=== PATIENT | male | born 1955 | race Caucasian/White ===

== ENCOUNTER 2017-01-11 18:59 | Inpatient (IN) | payer BC ==
[2017-01-11] MEDS ORDERED: Naloxone 0.4 MG/ML SDV IV PRN (19:52)
[2017-01-11] MEDS ORDERED: HYDROmorphone/Normal Saline 15 MG/30 ML PCA IV PRN (19:52)
[2017-01-11] MEDS ORDERED: Sodium Chloride 0.9% 10 ML Syringe FLUSH PRN (19:54)
[2017-01-11] MEDS: Dextrose 5%-Lactated Ringers 1,000 ML IV SCH (20:00)
[2017-01-11] MEDS ORDERED: MVI, Adult with Vitamin K 10 ML, Magnesium Sulfate 2 GM, Folic Acid 1 MG, Thiamine 100 ... IV SCH ×5 (20:00)
[2017-01-11] MEDS ORDERED: Ondansetron 4 MG/2 ML SDV IV PRN (20:07)
[2017-01-11] MEDS: Albuterol 8 GM Inhaler INH SCH (22:37)
[2017-01-11] MEDS: Brimonidine 0.2% Ophth Soln 5 ML Bottle EYEBOTH SCH (23:10)
[2017-01-11] MEDS: Timolol Maleate 0.5% Ophth Soln 5 ML Bottle EYEBOTH SCH (23:10)
[2017-01-11] MEDS: Gabapentin 300 MG Cap PO SCH (23:18)
[2017-01-11] MEDS: Pantoprazole 40 MG Vial IV SCH (23:18)
[2017-01-12] MEDS: Dextrose 5%-Lactated Ringers 1,000 ML IV SCH ×3 (02:19→21:49)
[2017-01-12] MEDS: Albuterol 8 GM Inhaler INH SCH ×2 (07:42→11:10)
[2017-01-12] MEDS ORDERED: MVI, Adult with Vitamin K 10 ML, Magnesium Sulfate 2 GM, Folic Acid 1 MG, Thiamine 100 ... IV SCH ×5 (08:00)
[2017-01-12] MEDS: Potassium Chloride 10 MEQ Cap.ER PO SCH ×2 (08:31→16:41)
[2017-01-12] MEDS: Allopurinol 300 MG Tab PO SCH (08:40)
[2017-01-12] MEDS: Furosemide 40 MG Tab PO SCH (08:41)
[2017-01-12] MEDS: Gabapentin 300 MG Cap PO SCH ×2 (08:42→21:42)
[2017-01-12] MEDS: Aspirin 81 MG Tab.EC PO SCH (08:42)
[2017-01-12] MEDS: Timolol Maleate 0.5% Ophth Soln 5 ML Bottle EYEBOTH SCH ×2 (08:48→21:42)
--- NOTE | 2017-01-12 08:50 | PN ---
DATE OF SERVICE: 01/12/2017 SUBJECTIVE: Vincenzo reports he ate some Jell-O after he was admitted last evening and some beef broth and he said it doubled him over in pain. He did use 2 bumps of a Dilaudid DONATION WORKER and he has not had to use that since. Vital signs have been stable. His pain otherwise has been controlled. REVIEW OF SYSTEMS: Remainder of review of systems negative for any pertinent positives and negatives. OBJECTIVE: GENERAL: Vincenzo is a 61-year-old male. VITAL SIGNS: Height is 5 feet 10 inches. Weight is 209 pounds. TPR is 96.5, 47, 16, blood pressure 159/78. HEENT: Negative. NECK: Supple. HEART: Regular rate and rhythm. LUNGS: Clear. ABDOMEN: Less tender than examination yesterday, but remains tender in all 4 quadrants with increased tenderness in the mid abdomen. EXTREMITIES: Without peripheral edema. ASSESSMENT: Partial small bowel obstruction/volvulus, SP Yakelin-en-Y gastric bypass surgery, unspecified surgical malabsorption, B12 deficiency. PLAN: 1. Schedule and have consent signed for exploratory laparoscopy, possible laparotomy for small-bowel volvulus, possible lysis of adhesion, and possible small bowel obstruction. General anesthesia. Kt Real MD date of surgery, 01/13/2017. 2. N.p.o. after midnight. Continue with sips of clear liquids and sips with medications. 3. To start incentive spirometer, use as directed. 4. We will evaluate p.r.n. or in a.m. Mandy Lewis PA-C /[id number]
[2017-01-12] MEDS: Brimonidine 0.2% Ophth Soln 5 ML Bottle EYEBOTH SCH ×2 (08:54→21:41)
[2017-01-12] MEDS: Lisinopril 5 MG Tab PO SCH (08:55)
[2017-01-12] MEDS: Pantoprazole 40 MG Vial IV SCH ×2 (08:55→21:42)
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
[2017-01-12] MEDS ORDERED: MVI, Adult with Vitamin K 10 ML, Magnesium Sulfate 2 GM, Folic Acid 1 MG, Thiamine 100 ... IV ONE ×5 (09:30)
[2017-01-12] MEDS ORDERED: Albuterol 8 GM Inhaler INH PRN (11:45)
--- NOTE | 2017-01-12 12:09 | CR ---
Chest 2V INDICATION: preop/ dehydration/volvulus FINDINGS: Comparison 04/01/2015. Heart size within normal limits. Pulmonary vascularity normal. Lungs are clear. Hypertrophic changes thoracic spine. Chest otherwise negative.
[2017-01-12] MEDS: Furosemide 80 MG Tab PO SCH (16:41)
[2017-01-13] MEDS: Dextrose 5%-Lactated Ringers 1,000 ML IV SCH ×2 (04:32→21:08)
[2017-01-13] MEDS ORDERED: Bupivacaine 0.5%/EPINEPHrine 1:200,000 50 ML MDV ONE (07:16)
[2017-01-13] MEDS ORDERED: Meropenem 500 MG SDV ONE (07:16)
--- NOTE | 2017-01-13 09:11 | PN ---
DATE OF SERVICE: 01/13/2017 SUBJECTIVE: Vincenzo is n.p.o. He will be having a diagnostic laparoscopy, possible laparotomy for small bowel volvulus today. Vital signs have been stable. REVIEW OF SYSTEMS: Negative for any other pertinent positives and negatives. He did have a cardiac consultation with Nel, yesterday. OBJECTIVE: GENERAL: Vincenzo Thrasher is a 61-year-old male. He is alert and orientated. VITAL SIGNS: TPR 97.8, 52, 16. Blood pressure 103/57. HEENT: Negative. NECK: Supple. HEART: Regular rate and rhythm. LUNGS: Clear. ABDOMEN: Mild tenderness in all 4 quadrants. EXTREMITIES: Without peripheral edema. ASSESSMENT: 1. Small bowel volvulus, partial small bowel obstruction, status post Yakelin-en-Y gastric bypass surgery, unspecified surgical malabsorption, B12 deficiency. 2. Abnormal EKG, sinus bradycardia and mild nonspecific intraventricular conduction delay. 3. Chronic renal disease, stage 3. 4. Coronary artery disease. PLAN: After preoperative evaluation, discussion of possible risks and possible complications, Vincenzo Thrasher wished to proceed with surgical procedure. Orders to be written postoperatively. Mandy Lewis PA-C /[id number]
[2017-01-13] MEDS: cefOXitin 2 GM in Sodium Chloride 0.9% 50 ML IV ONE ×2 (10:00→14:52)
[2017-01-13] MEDS ORDERED: fentaNYL 250 MCG/5 ML SDV ONE ×2 (10:26→11:08)
[2017-01-13] MEDS ORDERED: Neostigmine Methylsulfate 1 MG/ML 5 ML Syringe ONE (10:28)
[2017-01-13] MEDS ORDERED: Succinylcholine 200 MG/10 ML MDV ONE (10:28)
[2017-01-13] MEDS ORDERED: Dexamethasone 4 MG/ML SDV ONE (10:28)
[2017-01-13] MEDS ORDERED: Propofol 200 MG/20 ML SDV ONE (10:28)
[2017-01-13] MEDS ORDERED: Rocuronium 50 MG/5 ML Vial ONE (10:28)
[2017-01-13] MEDS ORDERED: Glycopyrrolate 0.2 MG/ML 5 ML MDV ONE (10:28)
[2017-01-13] MEDS ORDERED: Ondansetron 4 MG/2 ML SDV ONE (10:28)
[2017-01-13] MEDS ORDERED: Lactated Ringers 1,000 ML ONE (10:40)
[2017-01-13] MEDS ORDERED: fentaNYL 12 MCG/HR Transdermal Patch TRDERM SCH (12:00)
[2017-01-13] MEDS ORDERED: Labetalol 20 MG/4 ML Syringe IVPUSH ONE ×2 (12:12→13:24)
[2017-01-13] MEDS ORDERED: fentaNYL 100 MCG/2 ML SDV IVPUSH ONE (12:25)
[2017-01-13] MEDS ORDERED: hydrOXYzine HCl 100 MG/2 ML SDV IM ONE (12:52)
[2017-01-13] MEDS ORDERED: Lidocaine 2% Jelly 10 ML Urojet MUCMEM ONE (13:08)
[2017-01-13] MEDS: Potassium Chloride 10 MEQ Cap.ER PO SCH ×2 (14:52→17:36)
[2017-01-13] MEDS: Gabapentin 300 MG Cap PO SCH ×2 (14:53→20:51)
[2017-01-13] MEDS: VERIFY FENT PATCH PO SCH ×2 (14:54→20:52)
[2017-01-13] MEDS: Furosemide 40 MG Tab PO SCH (14:55)
[2017-01-13] MEDS: Brimonidine 0.2% Ophth Soln 5 ML Bottle EYEBOTH SCH ×2 (14:55→20:52)
[2017-01-13] MEDS: Timolol Maleate 0.5% Ophth Soln 5 ML Bottle EYEBOTH SCH ×2 (14:56→20:53)
[2017-01-13] MEDS ORDERED: Metoclopramide 10 MG/2 ML SDV IVPUSH PRN (15:00)
[2017-01-13] MEDS ORDERED: Cyanocobalamin (Vitamin B12) 1,000 MCG/ML SDV IM ONE (16:00)
[2017-01-13] MEDS: Pantoprazole 40 MG Vial IV SCH ×2 (17:33→20:53)
[2017-01-13] MEDS: Aspirin 81 MG Tab.EC PO SCH (17:34)
[2017-01-13] MEDS: Lisinopril 5 MG Tab PO SCH (17:34)
[2017-01-13] MEDS: Allopurinol 300 MG Tab PO SCH (17:34)
[2017-01-13] MEDS: Furosemide 80 MG Tab PO SCH (17:36)
[2017-01-13] MEDS: cefOXitin 2 GM in Sodium Chloride 0.9% 50 ML IV SCH ×2 (17:39→21:06)
[2017-01-13] MEDS: Heparin Sodium 5,000 Units/ML Vial SUBCUT SCH (20:45)
[2017-01-14] MEDS ORDERED: Iohexol 647 MG/ML 50 ML SDV PO STA (02:56)
[2017-01-14] MEDS: cefOXitin 2 GM in Sodium Chloride 0.9% 50 ML IV SCH (03:10)
[2017-01-14] MEDS: Dextrose 5%-Lactated Ringers 1,000 ML IV SCH (04:17)
[2017-01-14] MEDS ORDERED: Albuterol 8 GM Inhaler INH PRN (07:38)
[2017-01-14] MEDS: HYDROmorphone 2 MG Tab PO PRN ×4 (08:20→21:37)
[2017-01-14] MEDS: Metolazone 2.5 MG Tab PO SCH (08:26)
[2017-01-14] MEDS: Heparin Sodium 5,000 Units/ML Vial SUBCUT SCH ×2 (08:26→20:32)
[2017-01-14] MEDS: Potassium Chloride 10 MEQ Cap.ER PO SCH ×2 (08:26→17:20)
[2017-01-14] MEDS: Brimonidine 0.2% Ophth Soln 5 ML Bottle EYEBOTH SCH ×2 (08:28→20:29)
[2017-01-14] MEDS: Aspirin 81 MG Tab.EC PO SCH (08:29)
[2017-01-14] MEDS: Lisinopril 5 MG Tab PO SCH (08:29)
[2017-01-14] MEDS: amLODIPine 5 MG Tab PO SCH (08:29)
[2017-01-14] MEDS: Gabapentin 300 MG Cap PO SCH ×2 (08:29→20:30)
[2017-01-14] MEDS: Furosemide 40 MG Tab PO SCH (08:29)
[2017-01-14] MEDS: Allopurinol 300 MG Tab PO SCH (08:30)
[2017-01-14] MEDS: Timolol Maleate 0.5% Ophth Soln 5 ML Bottle EYEBOTH SCH ×2 (08:30→20:29)
[2017-01-14] MEDS: Pantoprazole 40 MG Vial IV SCH ×2 (08:30→20:30)
[2017-01-14] MEDS ORDERED: Aspirin 81 MG Tab.EC PO SCH (09:00)
[2017-01-14] MEDS ORDERED: Gabapentin 100 MG Cap PO SCH (09:00)
[2017-01-14] MEDS ORDERED: Lisinopril 20 MG Tab PO SCH (09:00)
[2017-01-14] MEDS ORDERED: Non-Formulary Medication 1 Each (Brimonidine/Timolol [Combigan 0.2%/0.5% Ophth Soln] 1 DRO EYEBOTH SCH (09:00)
[2017-01-14] MEDS: VERIFY FENT PATCH PO SCH ×2 (09:00→20:30)
[2017-01-14] MEDS ORDERED: Potassium Chloride 20 MEQ Tab.ER PO SCH (09:00)
[2017-01-14] MEDS ORDERED: Non-Formulary Medication 1 Each (Fluticasone/Vilanterol [Breo Ellipta 100-25 Mcg Inhalatio IH SCH (09:00)
[2017-01-14] MEDS ORDERED: Non-Formulary Medication 1 Each (Sitagliptin [Januvia] 100 MG) PO SCH (09:00)
--- NOTE | 2017-01-14 09:11 | CR ---
UGI wo KUB HISTORY: revision jj component of RYGBP FINDINGS: After administration of oral contrast, upright views were obtained. Post operative changes gastric bypass. Surgical drains in place. No evidence for leak. Free air beneath the left hemidiaphra gm is presumably postoperative. Contrast passes freely into proximal small bowel loops. IMPRESSION: No evidence for leak or obstruction.
--- NOTE | 2017-01-14 09:16 | PN ---
DATE OF SERVICE: 01/14/2017 SUBJECTIVE: Vincenzo is postop day #1. His upper GI this morning was normal. Pain is controlled. He states except it increases when he moves. Vital signs have been stable. Intake 1225, output 1325. DEWAYNE drain put out 10 mL of a light pink serosanguineous drainage. REVIEW OF SYSTEMS: Remainder of review of systems negative for any pertinent positives or negatives. OBJECTIVE: GENERAL: Vincenzo Thrasher is a 61-year-old male. He is alert and oriented, resting comfortably in bed. VITAL SIGNS: TPR 97.7, 60, 118, blood pressure 134/70. HEENT: Negative. NECK: Supple. HEART: Regular rate and rhythm. LUNGS: Clear. ABDOMEN: Dressings dry and intact. Abdominal binder is on. EXTREMITIES: Without peripheral edema. ASSESSMENT: Laparotomy, release of small bowel obstruction, volvulus. PLAN: 1. Discontinue ADMITTING OFFICER. 2. Dilaudid 2 mg 1 to 2 every 4 hours p.r.n. pain. 3. Discontinue continuous pulse ox. 4. Discontinue telemetry. 5. Discontinue D5 LR. 6. Start lactated Ringer's 100 mL per hour. 7. Step 4 gastric bypass diet. 8. Start home medications: Ventolin inhaler q.4 hours p.r.n., wheezing; Zyloprim 300 mg daily; Norvasc 5 mg p.o. daily; aspirin 81 mg p.o. daily; brimonidine tartrate apply to both eyes b.i.d.; Coreg 25 mg b.i.d.; Lasix 40 mg in a.m.; Lasix 80 mg q.p.m.; Neurontin 600 mg p.o. b.i.d.; lisinopril 5 mg daily; Zaroxolyn 5 mg p.o. q.48 hours scheduled; Dulera 2 puffs inhalation b.i.d.; potassium chloride 30 mEq p.o. b.i.d. 9. Good pulmonary toilet. 10.We will evaluate p.r.n. or in a.m. Mandy Lewis PA-C /[id number]
[2017-01-14] MEDS: Formoterol/Mometasone 100-5 MCG 8.8 GM Inhaler IH SCH ×2 (09:31→20:29)
[2017-01-14] MEDS: Carvedilol 25 MG Tab PO SCH ×2 (11:51→20:31)
[2017-01-14] MEDS ORDERED: Furosemide 80 MG Tab PO SCH (16:00)
[2017-01-14] MEDS: Furosemide 80 MG Tab PO SCH (17:19)
[2017-01-14] MEDS: Acetaminophen 500 MG Tab PO PRN ×2 (17:26→23:42)
[2017-01-14] MEDS: Lactated Ringers 1,000 ML IV SCH (19:35)
[2017-01-14] MEDS ORDERED: Allopurinol 300 MG Tab PO SCH (21:00)
[2017-01-15] MEDS: HYDROmorphone 2 MG Tab PO PRN ×5 (02:33→20:55)
[2017-01-15] MEDS: Lactated Ringers 1,000 ML IV SCH (05:32)
[2017-01-15] MEDS ORDERED: Furosemide 40 MG Tab PO SCH (07:30)
[2017-01-15] MEDS: Potassium Chloride 10 MEQ Cap.ER PO SCH ×2 (07:56→17:02)
[2017-01-15] MEDS: Heparin Sodium 5,000 Units/ML Vial SUBCUT SCH ×2 (07:56→20:52)
[2017-01-15] MEDS: Formoterol/Mometasone 100-5 MCG 8.8 GM Inhaler IH SCH ×2 (07:59→20:03)
[2017-01-15] MEDS: Allopurinol 300 MG Tab PO SCH (08:01)
[2017-01-15] MEDS: Aspirin 81 MG Tab.EC PO SCH (08:02)
[2017-01-15] MEDS: Furosemide 40 MG Tab PO SCH (08:02)
[2017-01-15] MEDS: Gabapentin 300 MG Cap PO SCH ×2 (08:03→20:54)
[2017-01-15] MEDS: Carvedilol 25 MG Tab PO SCH (08:03)
[2017-01-15] MEDS: amLODIPine 5 MG Tab PO SCH (08:03)
[2017-01-15] MEDS: Pantoprazole 40 MG Vial IV SCH ×2 (08:04→20:53)
[2017-01-15] MEDS: Timolol Maleate 0.5% Ophth Soln 5 ML Bottle EYEBOTH SCH ×2 (08:04→20:53)
[2017-01-15] MEDS: Brimonidine 0.2% Ophth Soln 5 ML Bottle EYEBOTH SCH ×2 (08:04→20:53)
[2017-01-15] MEDS: Lisinopril 5 MG Tab PO SCH (08:04)
[2017-01-15] MEDS: Acetaminophen 325 MG Tab PO PRN ×3 (08:16→20:54)
[2017-01-15] MEDS ORDERED: fentaNYL 25 MCG/HR Transdermal Patch TRDERM SCH (09:00)
[2017-01-15] MEDS: VERIFY FENT PATCH PO SCH ×2 (14:33→20:02)
[2017-01-15] MEDS ORDERED: Bacitracin Oint 28.35 GM Tube TOP PRN (14:55)
[2017-01-15] MEDS: Furosemide 80 MG Tab PO SCH (17:02)
[2017-01-15] MEDS ORDERED: Bacitracin Oint 28.35 GM Tube TOP SCH (21:00)
[2017-01-16] MEDS: HYDROmorphone 2 MG Tab PO PRN ×3 (01:47→13:58)
[2017-01-16] MEDS: Acetaminophen 325 MG Tab PO PRN ×3 (01:48→13:58)
[2017-01-16] MEDS: Potassium Chloride 10 MEQ Cap.ER PO SCH (08:23)
[2017-01-16] MEDS: Furosemide 40 MG Tab PO SCH (08:23)
[2017-01-16] MEDS: Allopurinol 300 MG Tab PO SCH (08:23)
[2017-01-16] MEDS: Formoterol/Mometasone 100-5 MCG 8.8 GM Inhaler IH SCH (08:23)
[2017-01-16] MEDS: Lisinopril 5 MG Tab PO SCH (08:27)
[2017-01-16] MEDS: amLODIPine 5 MG Tab PO SCH (08:27)
[2017-01-16] MEDS: Metolazone 2.5 MG Tab PO SCH (08:27)
[2017-01-16] MEDS: Gabapentin 300 MG Cap PO SCH (08:27)
[2017-01-16] MEDS: Timolol Maleate 0.5% Ophth Soln 5 ML Bottle EYEBOTH SCH (08:28)
[2017-01-16] MEDS: Brimonidine 0.2% Ophth Soln 5 ML Bottle EYEBOTH SCH (08:28)
[2017-01-16] MEDS: Pantoprazole 40 MG Vial IV SCH (08:28)
[2017-01-16] MEDS: Heparin Sodium 5,000 Units/ML Vial SUBCUT SCH (10:18)
[2017-01-16] MEDS: VERIFY FENT PATCH PO SCH (10:19)
[2017-01-16 11:10] VITALS: BP 123/64
--- NOTE | 2017-01-16 11:11 | OR ---
DATE OF PROCEDURE: 01/13/2017 PREOPERATIVE DIAGNOSIS: Partial small bowel obstruction, likely associated with small bowel volvulus. POSTOPERATIVE DIAGNOSES: 1. Partial small bowel obstruction secondary to small bowel volvulus. 2. 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 OPERATIVE PROCEDURE: Diagnostic laparoscopy converted to laparotomy with: 1. Reduction of small bowel volvulus and closure of internal hernia ([id number]). 2. Revision of the jejunojejunostomy component of Yakelin-en-Y gastric bypass ([id number]). ANESTHESIA: General. CALENDAR CONTROL CLERK BLOOD BANK: Mandy Lewis PA-C. INDICATION FOR PROCEDURE: This is a 61-year-old presenting with a picture of a small bowel volvulus, status post previous Yakelin-en-Y gastric bypass. He has had progressively worsening problems with postprandial crampy abdominal pain. A recent CT scan was consistent with a small bowel volvulus. Plan is to proceed with a diagnostic laparoscopy, laparotomy if necessary with reduction of volvulus and bowel resection as indicated. Potential risks including bleeding and perforation were discussed and the patient wishes to proceed. DETAILS OF PROCEDURE: The patient was taken to the operating room. After general endotracheal anesthesia was induced, the patient was placed in a lithotomy position. Josue catheter was inserted and the abdomen prepped and draped. In the left lower quadrant, a transverse incision was made. The peritoneal cavity entered under direct vision with an Optiview trocar, inflated to 15 mmHg pressure with CO2. Laparoscope was then reinserted. No underlying trocar insertion site injuries were seen. Following this, a single 5 mm right lower quadrant trocar was placed along with two left- sided 5 mm trocars. An initial examination of the Yakelin limb showed it to be diving deep into the mesentery after around 50 cm from the gastrojejunostomy, consistent with a small bowel volvulus and the bulk of the small bowel had somewhat dusky appearance consistent with some venous hypertension. Attention was then taken to the ileocecal valve. As one tried to reduce that, it became evident this was a very tight volvulus and the amount of force required to continue to reduce it became such that it appeared to be unsafe to continue with laparoscopic approach. Given this, trocars were removed. The peritoneal cavity was deflated. A midline incision, roughly a handsbreadth in length from the umbilicus superiorly was then made and carried down through the full thickness of the abdominal wall and the peritoneal cavity entered. The above findings reconfirmed. Carefully then the volvulus was gradually reduced by rotating the small bowel from a left to right direction. This was a fairly small opening, perhaps only around 6-7 cm and the mesentery showed this was a very tight volvulus. The volvulus was then eventually able to be reduced and all the bowel appeared to be viable at that time. Inspection of the jejunojejunostomy at this point showed it be associated with a tight stricture at the point where the Yakelin limb entered the jejunojejunostomy, and this was felt best to be treated by means of revision of the jejunojejunostomy component of this Yakelin-en-Y gastric bypass. The small bowel was divided at the point of the distalmost Yakelin limb as it joined the jejunojejunostomy, and then the GI tract continuity was then reestablished with revision of the jejunojejunostomy, roughly 40 cm further distally from the original anastomosis. This was accomplished with a [id number] enteroenterostomy with internal firing of the Endo-ALISHA arias load. The common opening was then closed transversely with the purple load and the angles anastomosed, the mesenteric defect approximated with some 3-0 silk stitch and fibrin sealant. At that point, no further problems were noted. The abdomen was irrigated with antibiotic-containing saline solution. No drains were felt to be necessary. The omentum was then draped across the lower abdomen to prevent the small bowel from becoming adherent to the abdominal wall. The midline fascia was then approximated with a #2 Vicryl stitch. Subcutaneous tissue was drained with a 10-Divehi round Roberto-Todd drain through a small stab wound inferior to the main incision and the incision was then closed with some 3-0 Vicryl stitch deep and heydi for the skin. The patient was taken to the recovery room in satisfactory condition. Physician under water assistant, Mandy Lewis played an essential role in assisting in this case, helping to position the patient, retract structures as needed, as well as suturing and cutting sutures when indicated. Her presence improved patient's safety and decreased operative time. Kt Real MD /[id number]
[2017-01-16] MEDS: Aspirin 81 MG Tab.EC PO SCH (11:12)
--- NOTE | 2017-01-16 11:22 | PN ---
DATE OF SERVICE: 01/15/2017 The patient has been afebrile with stable vital signs. Pain control seems a bit marginal at this point when he is moving. We will up the fentanyl patch to 25 mcg per hour dose. Otherwise, his blood sugars are running quite good. We will leave him off the Januvia and he may be ready for discharge home tomorrow. Kt Real MD /[id number]
--- NOTE | 2017-01-16 13:16 | DISCH ---
FINAL DIAGNOSES: 1. Partial small bowel obstruction secondary to small bowel volvulus. 2. A small-bowel stricture at the jejunojejunostomy. SECONDARY DIAGNOSES: 1. Bariatric surgery status. 2. Type 2 diabetes mellitus (presently in remission). 3. History of gout. 4. History of hypertension. 5. History of coronary artery disease. 6. History of osteoarthritis. OPERATIVE PROCEDURE: This was done on 01/13/2017. This was a diagnostic laparoscopy converted to laparotomy with: 1. Reduction of small bowel volvulus and closure of internal hernia. 2. Revision of jejunojejunostomy component of Yakelin-en-Y gastric bypass. HOSPITAL COURSE: This is a 61-year-old presenting with increasing problems with postprandial abdominal pain, initially seen in the emergency room in [place], at which time a CT scan was obtained. It was not recognized that this represented a small bowel volvulus. With continued pain, we transferred the CT here and it was fairly evident that he had a typical swirling mesentery consistent with small bowel volvulus. He was admitted here for IV hydration and pain control pain, and on 01/13/2017, the patient was taken to the operating room. Initial diagnostic laparoscopy confirmed the volvulus, but the opening through which the bowel had prolapsed had been between the limbs of the jejunojejunostomy, but it was too small to reduce by means of a laparoscopic approach. Therefore, a limited laparotomy was undertaken and that area was reduced and the mesenteric defect closed. The bowel wall appeared to be viable. The patient also had 1 additional problematic area being at the point where the Yakelin limb entered the jejunojejunostomy and that area appeared to have a fixed stricture. Given this, this was divided and the jejunojejunostomy then revised somewhat more distally which would provide a little bit more in the way of diabetic effect as well as provide some additional weight loss. Following that, the patient had no significant postoperative problems, moving his bowels and eating satisfactorily a step-4 diet. It is notable that he has been off any diabetic medications and his blood sugars have been running in the last 3 days anywhere from 86 to 118, again with no diabetic medication and a regular step-4 diet. It would therefore appear at this point not to continue the Januvia or any other diabetic medications. The patient will be discharged home. He will be resuming his usual home medications plus as noted above, discontinuing the Januvia. With regard to this will be asked to track his blood sugars a couple times a day and bring that log of blood sugars to the appointment. He has a 45 mcg per hour fentanyl patch on which he will be instructed to remove on 01/19/2017, and then also taking Tylenol 650 q.4 hours p.r.n. pain and Dilaudid 2- 4 mg p.o. q.4 hours p.r.n. pain, #50. Follow up will be with Mandy Lewis, [facility] on 01/25/2017.
== END 2017-01-16 14:30 | disposition home or self-care (01) | DRG 222 ==
LOC: JP.2SS 18:59
PROVIDERS: ADMIT Surgery; ATTEND Surgery
PROC: 0DS80ZZ Reposition Small Intestine, Open Approach (ICD-10-PCS; principal; 2017-01-13)
PROC: 0DW60CZ Revision of Extraluminal Device in Stomach, Open Approach (ICD-10-PCS; 2017-01-13)
DX: K56.600 Partial intestinal obstruction, unspecified as to cause (principal); E11.9 Type 2 diabetes mellitus without complications; I25.10 Atherosclerotic heart disease of native coronary artery without angina pectoris; M19.90 Unspecified osteoarthritis, unspecified site; Z98.84 Bariatric surgery status; Z87.39 Personal history of other diseases of the musculoskeletal system and connective tissue; Z68.29 Body mass index [BMI] 29.0-29.9, adult; R94.31 Abnormal electrocardiogram [ECG] [EKG]; N18.3 Chronic kidney disease, stage 3 (moderate); I12.9 Hypertensive chronic kidney disease with stage 1 through stage 4 chronic kidney disease, or unspecified chronic kidney disease
CPT/HCPCS: 36415; 71020; 71020-26; 74240; 74240-26; 80048; 80053; 82150; 82728; 82962; 83690; 83735; 83880; 84100; 85027; 93005; 94762; A9270-GY; C9113; J0330; J0694; J1100; J1170; J1644; J2185; J2405; J2704; J2710; J3010; J3410; J3411; J3420; J3475; J3490; J7042; J7050; J7120; Q9967

== ENCOUNTER 2019-09-27 12:58 | Inpatient (IN) | payer BC ==
[2019-09-27] MEDS ORDERED: Acetaminophen 650 MG Supp RECTAL PRN (13:14)
[2019-09-27] MEDS ORDERED: Acetaminophen 325 MG Tab PO PRN (13:14)
[2019-09-27] MEDS ORDERED: Ondansetron 4 MG/2 ML SDV IVPUSH PRN (13:15)
[2019-09-27] MEDS ORDERED: Methocarbamol 500 MG Tab PO PRN (13:17)
[2019-09-27] MEDS ORDERED: HYDROmorphone 2 MG Tab PO PRN (13:19)
[2019-09-27] MEDS ORDERED: Sodium Chloride 0.9% 10 ML Syringe FLUSH PRN (13:20)
[2019-09-27] MEDS ORDERED: Lactated Ringers 1,000 ML IV ONE (14:00)
[2019-09-27] MEDS: Furosemide 20 MG Tab PO SCH (15:32)
[2019-09-27] MEDS: Pantoprazole 40 MG Vial IV SCH (15:33)
[2019-09-27] MEDS: Albuterol 8 GM Inhaler INH SCH ×2 (15:38→20:52)
[2019-09-27] MEDS: Potassium Chloride 10 MEQ Cap.ER PO SCH (17:08)
[2019-09-27 18:33] LABS: HEMOGLOBIN A1C 4.1 % (4.5-6.2)
[2019-09-27] MEDS: Brimonidine 0.2% Ophth Soln 5 ML Bottle EYEBOTH SCH (20:48)
[2019-09-27] MEDS: Timolol Maleate 0.5% Ophth Soln 5 ML Bottle EYEBOTH SCH (20:49)
[2019-09-27] MEDS: diphenhydrAMINE 25 MG Cap PO SCH (20:50)
[2019-09-27] MEDS: Gabapentin 300 MG Cap PO SCH (20:51)
[2019-09-27] MEDS: Dextrose 5%-Lactated Ringers 1,000 ML IV SCH (20:58)
[2019-09-28] MEDS: Pantoprazole 40 MG Vial IV SCH ×2 (02:41→14:34)
[2019-09-28] MEDS: Dextrose 5%-Lactated Ringers 1,000 ML IV SCH (05:10)
[2019-09-28] MEDS ORDERED: Propofol 200 MG/20 ML SDV ONE (07:44)
[2019-09-28] MEDS ORDERED: Midazolam 1 MG/ML 2 ML SDV ONE (07:44)
[2019-09-28] MEDS ORDERED: fentaNYL 100 MCG/2 ML SDV ONE (07:44)
[2019-09-28] MEDS ORDERED: Aspirin 81 MG Tab.EC PO SCH (09:00)
[2019-09-28] MEDS ORDERED: Dextrose 5%-Lactated Ringers 1,000 ML IV SCH (09:30)
[2019-09-28] MEDS: Albuterol 8 GM Inhaler INH SCH ×4 (09:38→20:01)
[2019-09-28] MEDS: Furosemide 20 MG Tab PO SCH ×2 (09:39→14:34)
[2019-09-28] MEDS: Potassium Chloride 10 MEQ Cap.ER PO SCH ×2 (09:40→18:01)
[2019-09-28] MEDS: Brimonidine 0.2% Ophth Soln 5 ML Bottle EYEBOTH SCH ×2 (09:42→20:01)
[2019-09-28] MEDS: Rosuvastatin 10 MG Tab PO SCH (09:42)
[2019-09-28] MEDS: Gabapentin 300 MG Cap PO SCH ×2 (09:43→20:02)
[2019-09-28] MEDS: amLODIPine 5 MG Tab PO SCH (09:43)
[2019-09-28] MEDS: Lisinopril 5 MG Tab PO SCH (09:44)
[2019-09-28] MEDS: Timolol Maleate 0.5% Ophth Soln 5 ML Bottle EYEBOTH SCH ×2 (09:44→20:02)
--- NOTE | 2019-09-28 10:34 | PN ---
DATE OF SERVICE: 09/28/2019 SUBJECTIVE: He was admitted yesterday. See copy of history and physical. He developed severe heartburn and abdominal pain, mid epigastric area that radiated assisted down to his umbilicus. He said he vomited and ran no fever. The pain was severe enough to where he did call his provider, who recommended he go in to the ER. He called the clinic and had lab work drawn on 09/26/19, which showed a hemoglobin that was decreased. He was admitted yesterday and is n.p.o. He will be having an EGD this morning. Vital signs have been stable. Remains to have pain in the midepigastric and right below the midepigastric area. He has been having black stools. He had 2 yesterday, the first one quite dark and the second one not quite so dark. REVIEW OF SYSTEMS: HEENT: Negative. NECK: Negative. CHEST: No chest pain, shortness of breath, fast or irregular heartbeat. ABDOMEN: As above. EXTREMITIES: Chronic neck and back pain. No peripheral edema. SKIN: Without rash. PSYCHIATRIC: No insomnia, depression, or anxiety. Remainder of review of systems negative for any pertinent positives and negatives. OBJECTIVE: GENERAL: Vincenzo Thrasher is a 64-year-old male. VITAL SIGNS: Height is 5 feet 10 inches, weight is 187 pounds. BMI is 26.9. TPR 98, 54, 16. Blood pressure is 161/58. HEENT: Negative. NECK: Supple. HEART: Regular rate and rhythm. LUNGS: Clear. ABDOMEN: Tender in the mid epigastric area and about 4 inches below, otherwise negative. EXTREMITIES: Without peripheral edema. NEUROLOGIC: Intact. SKIN: Without rash. PSYCHIATRIC: Mood and affect appropriate. ASSESSMENT: 1. Gastrointestinal bleed. 2. Chronic kidney disease, stage 3. 3. Chronic diastolic congestive heart failure. 4. Coronary artery disease. 5. Hypertension. 6. Status post Yakelin-en-Y gastric bypass surgery, unspecified surgical malabsorption. 7. B12 deficiency. 8. Vitamin D deficiency. 9. Diabetes type 2, resolved after Yakelin-en-Y gastric bypass surgery. PLAN: Orders to be written after EGD. He will be getting 1 unit of packed red blood cells for hemoglobin today of 7.8. Other labs noted. BNP is 2543, albumin 2.6, globulin is 3, protein is 5.6. We will evaluate p.r.n. or in a.m. Mandy Lewis PA-C /[id number]
[2019-09-28] MEDS ORDERED: Cyanocobalamin (Vitamin B12) 1,000 MCG/ML SDV IM ONE (12:00)
[2019-09-28] MEDS: Dextrose 5%-Lactated Ringers 1,000 ML with MVI, Adult with Vitamin K 10 ML, Chromium/Co... IV SCH ×9 (12:55→22:11)
[2019-09-28] MEDS: diphenhydrAMINE 25 MG Cap PO SCH (20:03)
[2019-09-29] MEDS: Pantoprazole 40 MG Vial IV SCH (01:02)
[2019-09-29 07:12] VITALS: BP 176/77; PULSE 61
[2019-09-29] MEDS: Albuterol 8 GM Inhaler INH SCH (07:25)
[2019-09-29] MEDS: Rosuvastatin 10 MG Tab PO SCH (09:56)
[2019-09-29] MEDS: Gabapentin 300 MG Cap PO SCH (09:56)
[2019-09-29] MEDS: Furosemide 20 MG Tab PO SCH (09:56)
[2019-09-29] MEDS: Potassium Chloride 10 MEQ Cap.ER PO SCH (09:56)
[2019-09-29] MEDS: Lisinopril 5 MG Tab PO SCH (09:56)
[2019-09-29] MEDS: Brimonidine 0.2% Ophth Soln 5 ML Bottle EYEBOTH SCH (09:56)
[2019-09-29] MEDS: Timolol Maleate 0.5% Ophth Soln 5 ML Bottle EYEBOTH SCH (09:56)
[2019-09-29] MEDS: amLODIPine 5 MG Tab PO SCH (09:56)
--- NOTE | 2019-09-30 11:20 | DISCH ---
FINAL DIAGNOSES: 1. Upper gastrointestinal bleeding with significant anemia secondary to low marginal ulcer. 2. Chronic renal insufficiency. 3. History of asthma. SECONDARY DIAGNOSES: 1. History of coronary artery disease. 2. History of type 2 diabetes mellitus, in remission. 3. Hyperlipidemia, in remission. 4. Osteoarthritis. 5. History of hypertension. OPERATIVE PROCEDURE: Upper GI endoscopy with biopsies of gastric pouch for CLOtest. SUMMARY: This is a 64-year-old status post Yakelin-en-Y gastric bypass, presenting with some black and bloody stools and generally feeling somewhat weak, and his admitting hemoglobin was 8.7 and with initial hydration dropped to 7.8. On 09/28/2019, the patient underwent upper endoscopy which showed a healing marginal ulcer. There was no blood or bleeding, but this would certainly be a likely cause of the recent bleeding. A CLOtest on this as well as H. pylori breath tests are pending, but he received 1 unit of packed RBCs on 09/28/2019. Hemoglobin this morning is up to 9.9. Overall, he is feeling well. Plan will be to discharge home. We will keep him on Protonix 40 mg a day, #90 with refill x2, and we will await the H. pylori tests. If either one of these are positive, we will contact him regarding the course of antibiotics. Otherwise, he will be following up with Mandy Lewis at [facility] in December. If he does require treatment for H. pylori, we will arrange some additional followup test for that 2 or 3 weeks after completion of a course of antibiotics. Otherwise, he can continue on his usual medications. The patient does have a renal insufficiency. Admission creatinine was 2.5 and this dropped to 2.2 during the hospitalization and did also have ferritin checked which was 75, so iron infusion was not indicated.
[2019-10-01 19:11] LABS: H. PYLORI BREATH TEST Negative (Negative)
--- NOTE | 2019-10-03 15:54 | OR ---
DATE OF PROCEDURE: 09/28/2019 SURGEON: Kt Real MD PREOPERATIVE DIAGNOSIS: Anemia with history of black tarry stools. POSTOPERATIVE DIAGNOSIS: Anemia associated with a small healing marginal ulcer. OPERATIVE PROCEDURE: Upper gastrointestinal endoscopy with biopsies of gastric pouch for CLOtest. ANESTHESIA: IV sedation. INDICATION FOR PROCEDURE: This is a 64-year-old status post previous Yakelin-en-Y gastric bypass, presenting with history of weakness and some black stools. He was noted to have a hemoglobin in the 8.7 range on admission, which fell today to 7.8 after initial hydration. So the plan is to proceed with upper GI endoscopy with biopsies as indicated. Potential risks including bleeding and perforation were discussed, and the patient wishes to proceed. DETAILS OF PROCEDURE: The patient was taken to the operating room and placed in a left lateral decubitus position. IV sedation was administered after which the upper GI endoscope was passed orally through the length of the esophagus into the gastric pouch and from there through the gastrojejunostomy roughly 20 cm into the Yakelin limb. Findings included normal hypopharynx, larynx, upper esophageal sphincter, esophageal body as well as normal esophagogastric junction. The gastric pouch showed no significant inflammation at the esophagogastric junction. There was no stricturing. There was, however, small marginal ulcer located in the jejunum more or less flush with the anastomosis, measuring perhaps 8 mm in its maximal dimension. This was covered with fibrinous exudate, but no blood or bleeding was seen and the Yakelin limb was unremarkable. Biopsies were then obtained from the gastric pouch, sent for CLOtest for H. pylori. Minimal bleeding from the biopsy site was seen and the procedure then concluded. The patient was taken to the recovery room in satisfactory condition. Kt Real MD /[id number]
--- NOTE | 2019-10-03 16:28 | PN ---
DATE OF SERVICE: 09/28/2019 This is a 64-year-old who was admitted yesterday with a picture of upper GI bleeding. Initial hemoglobin was 8.7, after hydration today is 7.8. The patient underwent an upper endoscopy earlier which had showed marginal ulcer, which is presently covered with fibrinous exudate without bleeding. This is the likely source of upper GI bleeding could be present as well. The patient did have some black tarry stools indicating likely upper GI source for the bleeding. The plan today will be to obtain H pylori breath test. Otherwise, we will transfuse 1 unit of packed RBCs. Rechecked some labs in the morning. I think we need to start a step-4 diet. We will have Dietary see the patient today. We will apparently give the patient a B12 injection and run a ferritin level to make sure that is not significantly low. If he remains stable, we will continue the proton pump inhibitor therapy. If the CLOtest for H pylori exams are positive, he will be treated with one of the anti-H. pylori regimen. Otherwise, if he is stable, he maybe ready for discharge home tomorrow. Kt Real MD /[id number]
== END 2019-09-29 09:45 | disposition home or self-care (01) | DRG 241 ==
LOC: JP.MS 12:58
PROVIDERS: ADMIT Surgery; ATTEND Surgery
PROC: 30233N1 Transfusion of Nonautologous Red Blood Cells into Peripheral Vein, Percutaneous Approach (ICD-10-PCS; principal; 2019-09-28)
PROC: 0DB68ZX Excision of Stomach, Via Natural or Artificial Opening Endoscopic, Diagnostic (ICD-10-PCS; 2019-09-28)
DX: K25.4 Chronic or unspecified gastric ulcer with hemorrhage (principal); I50.32 Chronic diastolic (congestive) heart failure; I13.0 Hypertensive heart and chronic kidney disease with heart failure and stage 1 through stage 4 chronic kidney disease, or unspecified chronic kidney disease; D64.9 Anemia, unspecified; I25.10 Atherosclerotic heart disease of native coronary artery without angina pectoris; E11.22 Type 2 diabetes mellitus with diabetic chronic kidney disease; Z20.828 Contact with and (suspected) exposure to other viral communicable diseases; E78.5 Hyperlipidemia, unspecified; M19.90 Unspecified osteoarthritis, unspecified site; M10.9 Gout, unspecified; E86.0 Dehydration; N18.3 Chronic kidney disease, stage 3 (moderate); K91.2 Postsurgical malabsorption, not elsewhere classified; E53.8 Deficiency of other specified B group vitamins; E55.9 Vitamin D deficiency, unspecified; E60 Dietary zinc deficiency; Z98.84 Bariatric surgery status; Z79.899 Other long term (current) drug therapy
CPT/HCPCS: 36415; 36430; 80053; 82728; 83013; 83036; 83735; 83880; 84100; 85025; 85027; 86850; 86900; 86901; 86920; 86922; 87081; 94640; A9270-GY; C9113; J2250; J2704; J3010; J3420; J7120; J7121; P9016; U0002